=== PATIENT | male | born 2005 | race African-American/Black ===

== ENCOUNTER 2025-03-10 19:45 | Emergency (ER) | payer MEDICAID ==
[2025-03-10] MEDS ORDERED: IBUP-1986 PO (22:43)
[2025-03-10] MEDS ORDERED: AMOX-117 PO (22:43)
== END 2025-03-10 20:52 | disposition left against medical advice (07) ==
LOC: ER 19:47
DX: K08.89 Other specified disorders of teeth and supporting structures (principal); Z53.21 Procedure and treatment not carried out due to patient leaving prior to being seen by health care provider

== ENCOUNTER 2025-03-10 22:12 | Emergency (ER) | payer MEDICAID ==
[~2025-03-10] VITALS: Ht 190.5 cm; Wt 51.2 kg
[2025-03-10 22:15] VITALS: BP 124/76; TEMP 97.7
--- NOTE | 2025-03-10 22:25 | Physician Documentation ---
HPI ~ General Chief Complaint: Tooth Problem Stated Complaint: TOOTH PROBLEM Time Seen by MD: 22:44 History of Present Illness HPI Comment This is a 19-year-old male who presents with progressively worsening right upper rear dental pain, patient reports that he chipped the tooth some time ago and it has been becoming more and more painful. Patient reports that ibuprofen and Ty lenol is no longer controlling his pain. Patient reports he has a dentist appointment in a proximally four days. Patient reports no fever or difficulty swallowing. Medication Reconciliation Allergies: Coded Allergies: No Known Allergies (Unverified , 03/11/25) Scheduled Amox Tr/Potassium Clavulanate (Augmentin 875-125 Tablet), 1 TAB PO Q12H Ibuprofen (Ibuprofen), 1 TAB PO Q8H Past Medical History Past Medical History: No Pertinent History Review of Systems ROS As stated above in the HPI, otherwise all systems are reviewed and negative. Physical Exam Vital Signs: Temperature: 97.7, Source: Temporal, Heart Rate: 55, Respiratory Rate: 15, BP: 124/76, Pulse Oximetry: 100, Weight: 51.200 Physical Exam VITALS: Reviewed and as above. GENERAL: Alert, nontoxic appearing, no apparent distress. HEENT: Right upper rear most molar broken, minimal gingival swelling or erythema at base of molar. No facial swelling, no elevation of tongue, no submandibular swelling, no drooling RESPIRATORY: No increased work of breathing, no respiratory distress, speaking in full clear sentences Progress Results/Orders Results/Orders Completed Orders - NIKOLAI KWAN PHOTONICS ENGINEERING TECHNOLOGIST Ketorolac Trometh 15mg/Ml Vial (Toradol (03/10/25 22:20) Amox Tr/Potassium Clavulanate (Augmentin (03/10/25 22:20) Medications Received in ER Medications (Trade) Dose Ordered Sig/Randell Route PRN Reason Start Time Stop Time Status Last Admin Dose Admin (Toradol injection) 15 mg ONCE ONCE IM 03/10/25 22:20 03/10/25 22:23 DC 03/10/25 23:19 15 MG (Augmentin 875-125mg tablet) 1 tab ONCE ONCE PO 03/10/25 22:20 03/10/25 22:23 DC 03/10/25 23:19 1 TAB Vital Signs 03/10/25 03/10/25 22:15 23:23 Temp 97.7 Pulse 55 65 Resp 15 17 B/P (MAP) 124/76 Pulse Ox 100 99 Medical Decision Making Findings This well appearing 19 year old male presented with dental pain to the right posterior upper molar. Based on history and physical exam I have low clinical suspicion for peritonsillar abscess, uvulitis, deep tissue space infection of the head/neck, or impending airway compromise. There was no submandibular swelling or elevation of the tongue, the uvula was midline, patient is able to swallow fluids and secretion without difficulty, there is no increased work of breathing or noisy breathing. Based on presentation I am concerned for odontogenic infection and antibiotic treatment with Augmentin is indicated. Pain control with non-narcotic medications is appropriate at this time. It is reassuring patient has follow up with dentist in approximately four days. Patient provided home care instructions and return to care precautions which he verbalized understanding of. Differential Dx:Considerations: Include: Alveolar osteitis, ANUG, Facial Cellulitis, Periapical abscess, Pulpitis, Trigeminal neuralgia, Other (Price's angina) Departure Time of Disposition: 22:44 Disposition: HOME / SELF CARE / HOMELESS Impression: Primary Impression: Toothache Condition: Improved Discharge Instructions: Dental Pain Additional Instructions: Please take the antibiotics as prescribed. Please follow up with a dentist as scheduled. You may use the prescribed ibuprofen for pain, you may add [id number] Tylenol as needed for breakthrough pain according to the [id number] package instructions. Please follow up with your primary care provider in the next few days. Please return to the emergency department for any new or worsening concerning symptoms including but not limited to difficulty breathing or swallowing, or if you develop a fever over 100.4 that does not lower with ibuprofen or Tylenol. Referrals: NO PRIMARY CARE PROVIDER (PCP) Prescriptions Amox Tr/Potassium Clavulanate (Augmentin 875-125 Tablet) 1 Each Tablet 1 TAB PO Q12H for 7 Days, #14 TAB Prov: NIKOLAI KWAN 03/10/25 Ibuprofen (Ibuprofen) 800 Mg Tablet 1 TAB PO Q8H for pain for 10 Days, #30 TAB 0 Refills Prov: NIKOLAI KWAN 03/10/25 Education Educated: Patient Educated regarding: diagnosis, treatment, prognosis, need for follow up Signature Scribe Signature: No scribe Attestation: The note accurately reflects work and decisions made by me.WINTER Boyd 03/11/25 00:52 NIKOLAI KWAN Mar 10, 2025 22:25
[2025-03-10] MEDS ORDERED: AMOX-117 PO (22:43)
[2025-03-10] MEDS ORDERED: IBUP-1986 PO (22:43)
[2025-03-10] MEDS: ketorolac trometh 15mg/ml vial 15 MG/ML ML IM ONE (23:19)
[2025-03-10] MEDS: amox tr/potassium clavulanate 875/125mg TAB PO ONE (23:19)
[2025-03-10 23:23] VITALS: PULSE 65; RESP 17; O2SAT 99
== END 2025-03-10 23:24 | disposition home or self-care (01) ==
LOC: ER 22:12
DX: K08.89 Other specified disorders of teeth and supporting structures (principal); Z79.899 Other long term (current) drug therapy
CPT/HCPCS: 96372; 99283; J1885

== ENCOUNTER 2025-03-11 00:01 | Emergency (ER) | payer MEDICAID ==
[~2025-03-11] VITALS: Ht 190.5 cm; Wt 51.2 kg
[~2025-03-11 00:01] MED LIST: AMOX-117 PO; IBUP-1986 PO
[2025-03-11 00:19] VITALS: BP 124/76; PULSE 55; RESP 15; TEMP 96.3; O2SAT 100
== END 2025-03-11 03:08 | disposition left against medical advice (07) ==
LOC: ER 00:01
DX: K08.89 Other specified disorders of teeth and supporting structures (principal); Z53.21 Procedure and treatment not carried out due to patient leaving prior to being seen by health care provider

== ENCOUNTER 2025-04-24 14:51 | Emergency (ER) | payer MEDICAID ==
[~2025-04-24] VITALS: Ht 193 cm; Wt 67.8 kg
[~2025-04-24 14:51] MED LIST changes: -AMOX-117 PO
[2025-04-24 14:59] VITALS: BP 110/65; PULSE 108; TEMP 98.8; O2SAT 99
--- NOTE | 2025-04-24 15:18 | RADIOLOGY REPORT ---
CHEST RADIOGRAPH Indication: COUGH Technique: Single frontal view of the chest was obtained Comparison: None FINDINGS: Lines and Tubes: None Lungs: No focal consolidation. Pleura: No effusion. No pneumothorax. Cardiomediastinal contours: Unremarkable Bones: No acute osseous abnormality. IMPRESSION: No acute cardiopulmonary disease.
[2025-04-24 15:48] VITALS: RESP 16
[2025-04-24] MEDS ORDERED: AZIT250T12 PO (15:59)
[2025-04-24] MEDS ORDERED: ALBU8HFA INH (15:59)
--- NOTE | 2025-04-24 15:59 | Physician Documentation ---
History of Present Illness ~ Chief Complaint: Cough Stated Complaint: COLD SYMPTOMS Time Seen by MD: 15:32 HPI 19-year-old male presents to the ED with a complaint of a productive cough for the last 12 days.. Reports difficulty taking a breath and wheezing. Denies any history of asthma denies any smoking history. Denies any fevers. Medication Reconciliation Allergies: Coded Allergies: No Known Allergies (Unverified , 04/24/25) Scheduled Amoxicillin Trihydrate* (Amoxicillin*), 1 CAP PO Q8H Ibuprofen (Ibuprofen), 1 TAB PO Q8H Scheduled PRN albuterol inhaler (Pro-Air Inhaler), 2 PUFFS INH Q4HPRN PRN for wheezing Past Medical History Past Medical History: No Pertinent History Review of Systems All Other Systems at this time: Reviewed and Negative ROS As stated above in the HPI, otherwise all systems are reviewed and negative. Physical Exam Vital Signs: Temperature: 98.8, Source: Temporal, Heart Rate: 108, Respiratory Rate: 16, BP: 110/65, Pulse Oximetry: 99, Weight: 67.800 Oxygen Flow Rate: 0 Physical Exam General: Alert, no apparent distress. HEENT: PERRL, EOMI, no injection, moist mucous membranes. Respiratory: Notable wheezes bilaterally with rales Chest: No accessory muscle use. Cardiovascular: Regular rate and rhythm, no murmurs. Neurologic: Oriented x4. Psychiatric: Normal mood and affect. Skin: Normal color, warm and dry. No edema, no ecchymosis. Progress Results/Orders Results/Orders Vital Signs 04/24/25 04/24/25 14:59 15:48 Temp 98.8 Pulse 108 Resp 16 16 B/P (MAP) 110/65 Pulse Ox 99 O2 Flow Rate 0 Medical Decision Making Findings Treating for bacterial bronchitis. Patient not in any acute distress meets criteria for outpatient therapy. So sending him home with a an inhaler secondary to the wheezing which auscultated Differential Dx:Considerations: Include: Allergic rhinitis, Influenza, Otitis media, Peritonsillar abscess, Pharyngitis-Diphtheria, Pharyngitis-Streptoccal, Pharyngitis-Viral, Pneumonia, Pnuemonitis, Sinusitis, URI, Other Departure Disposition: 01 HOME / SELF CARE / HOMELESS Impression: Primary Impression: Acute bronchitis Condition: Stable Discharge Instructions: Upper Respiratory Infection, Adult Referrals: NO PRIMARY CARE PROVIDER (PCP) Prescriptions Amoxicillin Trihydrate* (Amoxicillin*) 500 Mg Capsule 1 CAP PO Q8H for 10 Days, #30 CAP Prov: LAVON LAUREN REMANUFACTURING TECHNICIAN 04/24/25 albuterol inhaler (Pro-Air Inhaler) 8.5 Gm Inhaler 2 PUFFS INH Q4HPRN PRN for wheezing for 30 Days, #18 GM Prov: LAVON LAUREN REMANUFACTURING TECHNICIAN 04/24/25 Signature Scribe Signature: h Attestation: Scribed for Lavon Lauren Purchasing Supervisor by Lavon Lauren - ALAN . 04/24/25 23:52 LAVON LAUREN NP Apr 24, 2025 15:59
[2025-04-24] MEDS ORDERED: AMOX500C2 PO (16:03)
== END 2025-04-24 16:13 | disposition home or self-care (01) ==
LOC: ER 14:52
DX: J20.9 Acute bronchitis, unspecified (principal)
CPT/HCPCS: 71045; 99283